=== PATIENT | female | born 1980 | race Caucasian/White ===

== ENCOUNTER 2018-11-10 11:14 | Emergency (ER) | payer OTHER ==
[~2018-11-10] VITALS: Ht 160 cm; Wt 54.4 kg
[~2018-11-10 11:14] MED LIST: NABUMETONE500 MG PO; PERCOCET 5/3251 TAB PO
[2018-11-10] MEDS ORDERED: MUCINEX DM ER1 EAC1 PO (20:56)
[2018-11-10] MEDS ORDERED: PEPCID AC20 MG PO (20:56)
[2018-11-10] MEDS ORDERED: TESSALON PERLE100 M1 PO (20:56)
[2018-11-10] MEDS ORDERED: KETO10TA2 PO (20:56)
[2018-11-10] MEDS ORDERED: AIRBORNE EFFER1 EACH PO (20:56)
[2018-11-10] MEDS ORDERED: OSEL75CA PO (20:56)
== END 2018-11-10 21:05 | disposition home or self-care (01) ==
LOC: ER 11:14
DX: J11.1 Influenza due to unidentified influenza virus with other respiratory manifestations (principal)